=== PATIENT | female | born 1995 | race Hispanic/Latino ===

== ENCOUNTER 2021-05-18 16:56 | Emergency (ER) | payer SELFPAY | END 2021-05-18 17:18 | disposition home or self-care (01) | LOC: BURERS 16:56 | DX: H10.31 Unspecified acute conjunctivitis, right eye (principal) | CPT/HCPCS: 99283 ==

== ENCOUNTER 2021-12-20 13:14 | Emergency (ER) | payer BC, OTHER ==
[2021-12-20 21:06] LABS: SARS-CoV-2 PCR by NAA Not Detected (NotDetected)
== END 2021-12-20 13:55 ==
LOC: BURERS 13:14
DX: N61.0 Mastitis without abscess (principal); R51.9 Headache, unspecified; R68.83 Chills (without fever); M79.10 Myalgia, unspecified site; Z20.822 Contact with and (suspected) exposure to COVID-19
CPT/HCPCS: 87804; 99283; U0003; U0005

== ENCOUNTER 2025-07-15 01:05 | Emergency (ER) | payer BC, MEDICAID, OTHER ==
[2025-07-15] MEDS ORDERED: Fluorescein Opthalmic Strip ONE (01:09)
[2025-07-15] MEDS ORDERED: Tetracaine 0.5% PF 4 ML BOT ONE (01:09)
== END 2025-07-15 01:59 | disposition home or self-care (01) ==
LOC: BURERS 01:05
DX: S05.01XA Injury of conjunctiva and corneal abrasion without foreign body, right eye, initial encounter (principal); X58.XXXA Exposure to other specified factors, initial encounter
CPT/HCPCS: 99283